=== PATIENT | male | born 1995 | race Caucasian/White ===

== ENCOUNTER 2016-12-14 01:42 | Emergency (ER) | payer OTHER ==
[~2016-12-14] VITALS: Ht 180.3 cm; Wt 71.7 kg
[2016-12-14 01:54] VITALS: BP 103/57
[2016-12-14] MEDS ORDERED: LIDOCAINE W/EPINEPHRINE 1% 20ML VIAL As Ordered ONE (04:19)
--- NOTE | 2016-12-14 04:40 | REPUSA ---
CLINICAL HISTORY: Neck pain. TECHNIQUE: Multiple axial images were obtained through the cervical spine. Images were also reconstru cted in coronal and sagittal planes. The study was performed without IV contrast. COMMENTS: There is no fracture or spondylolisthesis visualized. The paraspinal soft tissues are unremarkable. T here are no lytic or blastic lesions. Straightening of cervical lordosis is seen, suggesting muscular spasm. There is evidence of minimal m ultilevel disk disease, demonstrated by minimal osteophytosis and endplate sclerosis. No significant disk herniation is noted at any level. Canal and foramina remain patent. IMPRESSION: 1. No fracture or spondylolisthesis. 2. Straightening of cervical lordosis is seen, suggesting muscular spasm. 3. Minimal multilevel spondylosis. Thank you for your kind referral of this patient.
[2016-12-14] MEDS ORDERED: LIDOCAINE W/EPINEPHRINE 1% 20ML VIAL SC ONE (05:00)
[2016-12-14] MEDS ORDERED: BACITRACIN OINT 30GM TOP ONE ×2 (05:00)
[2016-12-14] MEDS ORDERED: POLYSPORIN TOPICAL OINTMENT 15GM As Ordered ONE (05:05)
[2016-12-14] MEDS ORDERED: POLYSPORIN TOPICAL OINTMENT 15GM TOP ONE (05:30)
== END 2016-12-14 05:21 | disposition home or self-care (01) ==
LOC: M ED 02:52
DX: S01.112A Laceration without foreign body of left eyelid and periocular area, initial encounter (principal); W18.09XA Striking against other object with subsequent fall, initial encounter; Y92.89 Other specified places as the place of occurrence of the external cause; Y93.89 Activity, other specified; Y99.8 Other external cause status; F10.120 Alcohol abuse with intoxication, uncomplicated; F17.210 Nicotine dependence, cigarettes, uncomplicated; M47.9 Spondylosis, unspecified

== ENCOUNTER 2017-04-26 16:04 | Emergency (ER) | payer OTHER ==
[~2017-04-26] VITALS: Ht 180.3 cm; Wt 68.2 kg
[2017-04-26] MEDS ORDERED: IBUP-1022 PO (17:11)
[2017-04-26 17:28] VITALS: BP 110/70
--- NOTE | 2017-04-27 07:21 | REP ---
Right wrist series: Four views. History: Pain after a fall. Findings: Four views of the right wrist demonstrate normal bones, joints, and soft tissues. No fracture or subluxation is seen. Impression: Negative views of the right wrist. Signed by Edward Harley MD 04/27/2017 08:47 A
== END 2017-04-26 17:30 | disposition home or self-care (01) ==
LOC: M ED 16:04
DX: M25.531 Pain in right wrist (principal); W19.XXXA Unspecified fall, initial encounter; Y92.099 Unspecified place in other non-institutional residence as the place of occurrence of the external cause; Y93.9 Activity, unspecified; Y99.9 Unspecified external cause status

== ENCOUNTER 2018-04-17 03:28 | Emergency (ER) | payer OTHER ==
[2018-04-17] MEDS: PERCOCET 5MG/325MG TAB PO (05:11)
[2018-04-17] MEDS: OXYCODONE/APAP 5MG/325MG(BULK FOR ED) 1 TABLET PO (05:45)
== END 2018-04-17 06:11 | disposition home or self-care (01) ==
LOC: M ED 03:28
DX: S59.901A Unspecified injury of right elbow, initial encounter (principal); S09.90XA Unspecified injury of head, initial encounter; Y04.8XXA Assault by other bodily force, initial encounter; Y92.410 Unspecified street and highway as the place of occurrence of the external cause; F17.210 Nicotine dependence, cigarettes, uncomplicated
CPT/HCPCS: 73060

== ENCOUNTER → 2018-04-30 | Outpatient (CLI) | payer OTHER | LOC: M RAD 09:16 | DX: S42.455A Nondisplaced fracture of lateral condyle of left humerus, initial encounter for closed fracture (principal); S52.125A Nondisplaced fracture of head of left radius, initial encounter for closed fracture; X58.XXXA Exposure to other specified factors, initial encounter; Y92.9 Unspecified place or not applicable; M79.89 Other specified soft tissue disorders; M25.422 Effusion, left elbow | CPT/HCPCS: 73200 ==

== ENCOUNTER 2018-05-01 19:48 | Emergency (ER) | payer OTHER ==
[2018-05-01] MEDS: AZITHROMYCIN 250 MG TAB PO (21:02)
[2018-05-01] MEDS: cefTRIAXone SOD 1 GM VIAL (J0696) IM (21:02)
[2018-05-01 21:51] LABS: CHLAMYDIA DNA AMPLIFICATION NEGATIVE (NEGATIVE); GC DNA AMPLIFICATION NEGATIVE (NEGATIVE)
== END 2018-05-01 21:31 | disposition home or self-care (01) ==
LOC: M ED 19:48
DX: A56.01 Chlamydial cystitis and urethritis (principal); F17.200 Nicotine dependence, unspecified, uncomplicated
CPT/HCPCS: J0696